=== PATIENT | male | born 1965 | race Caucasian/White ===

== ENCOUNTER → 2022-07-11 | Outpatient (CLI) | payer BC ==
[~2022-07-11] MED LIST: LISI20TA26 PO
--- NOTE | 2022-07-11 11:48 | Diagnostic Imaging Report ---
US SCROTUM (Testicle) [id number] TECHNIQUE: Elizondo-scale, color doppler and spectral duplex imaging of the scrotum and its contents was performed. INDICATION: Testicular mass COMPARISON: None available. FINDINGS: Right: The right testis is normal in size measuring 4.6 x 2.7 x 3.8 cm. It has homogenous echogenicity without mass or microcalcification. Blood flow is present in the right testis by color doppler imaging, and low resistance waveforms are present. Two adjacent epididymal head cysts, larger which measures 2.7 x 4.7 x 4.0 cm. No hydrocele or varicole. Left: The left testis is normal in size measuring 4.9 x 2.2 x 3.5 cm. It has homogenous echogenicity without mass or microcalcification. Blood flow is present in the left testis by color doppler imaging, and low resistance waveforms are present. Well-circumscribed ovoid cyst in the tail of the epididymis has low-level internal echoes and measures up to 4.2 cm. No hydrocele or varicole. IMPRESSION: 1. Bilateral large spermatoceles involving the epididymes are likely the source of patient's palpable masses. 2. No testicular mass to suggest neoplasm. Dictated by: Dictated on workstation # [id number]
== END ==
LOC: RAD 09:15
PROVIDERS: ATTEND Internal Medicine
DX: N43.42 Spermatocele of epididymis, multiple (principal)
CPT/HCPCS: 76870